=== PATIENT | female | born 1970 | race Caucasian/White ===

== ENCOUNTER 2021-06-20 09:49 | Outpatient (CLI) | payer BC, SELFPAY ==
--- NOTE | 2021-06-20 11:00 | NEURO_ITS ---
Impression: # Complains of numbness of hands. # Right moderate Carpal Tunnel Syndrome. # Left mild evolving Carpal Tunnel Syndrome. # No ulnar neuropathy. # Normal needle/EMG exam. Nerve Conduction Studies Anti Sensory Summary Table Stim Site NR Peak (ms) P-T Amp (?V) Site1 Site2 Delta-P (ms) Dist (cm) Robert (m/s) Left Median Anti Sensory (2-3nd Digit) Wrist 3.2 96.4 Wrist 2-3nd Digit 3.2 14.0 44 Wrist 3.2 85.9 Wrist 2-3nd Digit 3.2 14.0 44 Right Median Anti Sensory (2-3nd Digit) Wrist 5.4 23.2 Wrist 2-3nd Digit 5.4 14.0 26 Wrist 6.1 16.8 Wrist 2-3nd Digit 5.4 14.0 26 Left Radial Anti Sensory (Base 1st Digit) Wrist 1.8 37.3 Wrist Base 1st Digit 1.8 0.0 Right Radial Anti Sensory (Base 1st Digit) Wrist 2.1 37.2 Wrist Base 1st Digit 2.1 0.0 Left Ulnar Anti Sensory (5th Digit) Wrist 2.5 64.0 Wrist 5th Digit 2.5 14.0 56 Right Ulnar Anti Sensory (5th Digit) Wrist 2.3 35.5 Wrist 5th Digit 2.3 14.0 61 Motor Summary Table Stim Site NR Onset (ms) O-P Amp (mV) Site1 Site2 Delta-0 (ms) Dist (cm) Robert (m/s) Left Median Motor (Abd Poll Brev) Wrist 3.8 1.5 Elbow Wrist 5.0 26.0 52 Elbow 8.8 1.5 Right Median Motor (Abd Poll Brev) Wrist 5.0 0.1 Elbow Wrist 5.2 24.0 46 Elbow 10.2 0.5 Left Ulnar Motor (Abd Dig Minimi) Wrist 2.3 4.9 A Elbow Wrist 4.3 26.0 60 A Elbow 6.6 5.3 Right Ulnar Motor (Abd Dig Minimi) Wrist 2.3 7.7 A Elbow Wrist 4.4 26.0 59 A Elbow 6.7 6.3 F Wave Studies NR F-Lat (ms) L-R F-Lat (ms) Left Median (Mrkrs) (Abd Poll Brev) 27.49 1.52 Right Median (Mrkrs) (Abd Poll Brev) 29.01 1.52 Left Ulnar (Mrkrs) (Abd Dig Min) 26.88 1.60 Right Ulnar (Mrkrs) (Abd Dig Min) 25.28 1.60 EMG Side Muscle Nerve Root Ins Act Fibs Amp Dur Recrt Comment Right 1stDorInt Ulnar C8-T1 Nml Nml Nml Nml Nml Right Ext Indicis Radial (Post Int) C7-8 Nml Nml Nml Nml Nml Right Ext Digitorum Radial (Post Int) C7-8 Nml Nml Nml Nml Nml Right BrachioRad Radial C5-6 Nml Nml Nml Nml Nml Right PronatorTeres Median C6-7 Nml Nml Nml Nml Nml Right Abd Poll Brev Median C8-T1 Nml Nml Nml Nml Nml Left 1stDorInt Ulnar C8-T1 Nml Nml Nml Nml Nml Left Ext Indicis Radial (Post Int) C7-8 Nml Nml Nml Nml Nml Left Ext Digitorum Radial (Post Int) C7-8 Nml Nml Nml Nml Nml Left BrachioRad Radial C5-6 Nml Nml Nml Nml Nml Left PronatorTeres Median C6-7 Nml Nml Nml Nml Nml Left Abd Poll Brev Median C8-T1 Nml Nml Nml Nml Nml MTDD
== END 2021-06-20 09:50 | disposition home or self-care (01) ==
PROVIDERS: Visit Provider Internal Medicine
DX: M79.641 Pain in right hand (principal); G56.03 Carpal tunnel syndrome, bilateral upper limbs
CPT/HCPCS: 95886; 95911

== ENCOUNTER 2022-06-13 08:13 | Outpatient (CLI) | payer BC, SELFPAY ==
--- NOTE | 2022-06-13 08:20 | ECG_ITS ---
Measurements Intervals [place] Rate: 92 P: 13 MT: 143 QRS: 1 QRSD: 85 T: 6 QT: 342 QTc: 425 Interpretive Statements SINUS RHYTHM LOW QRS VOLTAGE POOR R-WAVE PROGRESSION NO PREVIOUS ECG AVAILABLE FOR COMPARISON Electronically Signed On 06-13-2022 17:15:11 [employer] by Kevin Maza M.D.
[2022-06-13 09:03] LABS: Anion Gap 3 mmol/L (8-16); Blood Urea Nitrogen 10 mg/dL (7-17); Calcium 8.7 mg/dL (8.4-10.2); Carbon Dioxide 32 mmol/L (22-30); Chloride 103 mmol/L (98-107); Estimated Glomerular Filt Rate > 60; Glucose 101 mg/dL (65-110); Sodium 138 mmol/L (137-145)
== END 2022-06-13 08:14 | disposition home or self-care (01) ==
PROVIDERS: Anesthesiology; PCP Physician Assistant Medical; Visit Provider Orthopaedic Surgery
DX: I10 Essential (primary) hypertension (principal); Z01.818 Encounter for other preprocedural examination
CPT/HCPCS: 36415; 80048; 93005

== ENCOUNTER 2022-06-17 00:46 | Day surgery (SDC) | payer BC, SELFPAY ==
--- NOTE | 2022-06-09 15:19 | PC.NURSE ---
Report to the Outpatient Waiting Room, entrance under the green pavilion located off [address], at time _0900 on date _06/17/22 . Planned Procedure Time: ___1100 . Time changes happen often and if your time is changed the preop area will call you the afternoon before. - You and your visitor will be asked to self-screen and do not enter if you have any COVID symptoms. - Only one visitor is requested with a max of two and NO children visitors are allowed at this time. - The patient visitor may be requested to leave or wait in car when not with patient due to distancing restrictions. - A mask is optional within the hospital. Patients may have clear liquids (water, carbonated beverages, clear teas, apple juice) until 3 hours prior to surgery with a maximum of 20 ounces. - No food from midnight until time of surgery - Infants may have breast milk until 4 hours before surgery, formula 6 hours prior to surgery. - Children will be allowed to drink immediately following surgery. If applicable, please bring a bottle or sippy cup to assist with drinking. Juice, water, soda, and popsicles are readily available. For infants on formula, please bring formula the day of surgery. Pacifiers are allowed. Take the following medications with a SIP of water the morning of surgery: __NONE Medications to discontinue per physician ___NAPROXEN PER DR ALLAN . ALL VIT/SUPP 3 DAYS PRE OP Date to take last dose 06/13/22 Please no make-up, nail thai, hairspray, perfume, deodorant, or body powder the day of surgery. No jewelry (including any body piercings) or valuables the day of surgery, leave them at home. Please take a shower or bath the night before, or the morning of, surgery with an antibacterial soap. Wear comfortable, loose fitting clothing. Children are encouraged to wear pajamas. - Jewelry must be removed prior to entering the operating room. Rings and piercings that are not removed may be cut off. - The hospital will not accept responsibility for valuables. - Please leave all valuables, including medications, at home the day of surgery. If you are going home after surgery, a licensed yard driver must drive you home. - NO public transportation without another adult if you receive anesthesia. - We recommend that an adult stay with you for 24 hours following discharge. - We also recommend that you do not drive, make important decision, drink alcoholic beverages, or take any drugs that were not prescribed by your health care provider for at least 24 hours after your discharge time. For Pediatric surgeries, we recommend two adults accompany the child home. Follow any additional instructions given to you from your surgeon. If you or anyone in your household have experienced Covid symptoms in the past week, please notify your surgeon or the nurse liaison at the phone number below for possible testing. Telephone instructions given to _PATIENT and asked if any additional questions and then verbalized understanding. Patient advised to call surgeon office or pre surgery nurse liaison [phone] if any additional questions.
[2022-06-09 15:29] VITALS: BMI 44.1
--- NOTE | 2022-06-16 14:00 | WPDANESEPPF ---
Anes - Initial Pre Proc Eval Procedure: Operation Date: 06/17/22 11:00 Proposed Procedures p Left Knee Arthroscopy - Adolfo Young MD Date/Time: 06/16/22 14:00 Surgeon: Adolfo Young MD Pre Op Diagnosis: Lt Knee Medial Meniscus Tear Patient Data Age: 51 Gender: F Height: 1.65 m Weight: 120.35 kg Allergies Allergy/AdvReac Type Severity Reaction Status Date / Time latex Allergy Severe Irritable Verified 06/09/22 15:09 meloxicam AdvReac Severe Headache Verified 06/09/22 15:11 Home Medications Medication Instructions Recorded Confirmed Type cholecalciferol (vitamin D3) 125 125 mcg PO DAILY 03/12/22 06/09/22 History mcg (5,000 unit) tablet cyanocobalamin (vitamin B-12) 2,500 mcg PO DAILY 03/12/22 06/09/22 History 2,500 mcg tablet losartan 50 mg tablet 50 mg PO DAILY #30 tabs 03/12/22 06/09/22 Rx naproxen sodium 220 mg capsule 220 mg PO BID PRN Pain 03/12/22 06/09/22 History (Aleve) ropinirole 0.25 mg tablet 0.25 mg PO .as needed 03/12/22 06/09/22 History tramadol 50 mg tablet 50 mg PO Q6H PRN pain #30 tabs 04/03/22 06/09/22 Rx furosemide 20 mg tablet 20 mg PO QAM #30 tabs 05/30/22 06/09/22 Rx chlorhexidine gluconate 4 % 1 applic topical ONCE #237 mL 06/09/22 Rx topical liquid (Hibiclens) cranberry 500 mg capsule 500 mg PO DAILY 06/09/22 06/09/22 History Patient hx anesthesia problems: none Family hx anesthesia problems: none Results Review: All pre-operative results and documents have been reviewed as part of the pre-operative evaluation. [facility] Past Medical History Medical History (Updated 06/16/22 @ 14:01 by Reji Gordon MD) Dyslipidemia HTN (hypertension) Knee pain, left Morbid obesity with BMI of 40.0-44.9, adult Obesity Osteoarthritis Vitamin B12 deficiency Vitamin D deficiency Social History Social History Smoking packs per day: 1 Smoking cigarettes per day: 20.0 Years smoked: 3 Smoking pack-years: 3.00 Smoking status: Former smoker Tobacco type: cigarettes Smoking end date: 07/06/91 Alcohol intake: current Drinks per week: 8 Alcohol use details: BEER Substance use: never Living arrangements: with family Gender identity (if verbalized by the patient): Female Spiritual care concerns: No Anes - Eval Final PreProcedure Day of Procedure 06/16/22 14:00 Patient weight: morbidly obese Heart: regular rate and rhythm Lungs: clear to auscultation and normal air movement Airway: Mallampati scale class II Neurological: alert and oriented Last oral intake: >/= 8 hours ASA classification: III Emergent: no Anesthetic plan: proceed Anesthesia type and monitoring: general LMA Results Review: All pre-operative results and documents have been reviewed as part of the pre-operative evaluation. Informed Consent: The patient's anesthetic plan and its attendant risks and benefits were discussed with the patient/family/POA. Questions were solicited and answers provided to the satisfaction of the patient/family/POA.
[2022-06-17] VITALS (11 sets, daily range): BP systolic 133–153; BP diastolic 71–99; PULSE 78–92; RESP 12–20; TEMP 36.4–36.6; O2SAT 93–100; BMI 43.9
--- NOTE | 2022-06-17 06:58 | WPDHPUPDATE1 ---
History and Physical Update Update Date/Time: 06/17/22 06:58 History and Physical has been reviewed, including an updated exam of the patient. There are NO changes in the patient's condition. Risks, benefits, and alternatives have been discussed and questions answered. Patient agrees to proceed with procedure.
[2022-06-17] MEDS: CELECOXIB 200 MG CAPSULE PO (09:53)
[2022-06-17] MEDS: ACETAMINOPHEN 500 MG TABLET 1000 MG PO (09:53)
[2022-06-17] MEDS: LACTATED RINGERS 1,000 ML 30 ML IV CONT ×2 (10:18→12:47)
[2022-06-17] MEDS: ceFAZolin 2 GM/D5W 50 ML 2 GM/50 ML BAG IVPB (11:22)
[2022-06-17] MEDS: methylPREDNISolone ACETATE 80 MG/ML VIAL IM (12:33)
[2022-06-17] MEDS: BUPIVACAINE HCL 0.5% PF 30 ML VIAL INFILTRATE (12:43)
[2022-06-17] MEDS: fentaNYL CITRATE INJ (*CRX) 100 MCG/2 ML VIAL 25 MCG IV PUSH ×8 (12:53→13:38)
--- NOTE | 2022-06-17 13:09 | W.PM.PROC2 ---
Procedure Note - Detailed Date of Procedure 06/17/22 Pre-op Diagnosis Lt Knee Medial Meniscus Tear Post-op Diagnosis Same Procedure Performed LEFT KNEE SCOPE Surgeon Adolfo Young MD Anesthesia General Description of Procedure PATIENT WAS TAKEN TO THE OR. LEFT LEG WAS PREPPED AND DRAPED STERILE. TROCARS WERE PLACED IN THE USUAL FASHION. CAMERA WAS INTRODUCED. THERE WAS SEVERE CHONDROMALACIA TO THE PATELLA FEMORAL JOINT. THERE WAS A LOT OF SYNOVITIS IN ALL COMPARTMENTS. THE MEDIAL COMPARTMENT SHOWED CHONDROMALACIA TO THE MEDIAL FEMORAL CONDYLE. A SHAVER WAS USED TO PREFORM A CHONDROPLASTY. THERE WAS A COMPLEX MEDIAL MENISCUS TEAR. THE TEAR WAS RESECTED WITH A BITER AND A SHAVER DOWN TO A SMOOTH BASE. THE ACL WAS INTACT. THE LATERAL MENISCUS WAS NOT TORN. THE LATERAL COMPARTMENT HAD MINIMAL CHONDROMALACIA. CHONDROPLASTY WAS PREFORMED. A SYNOVECTOMY WAS PREFORMED WELL. THE PATELLO FEMORAL JOINT UNDERWENT CHONDROPLASTY. THERE WAS GRADE 3 AND 4 CHONDROMALACIA IN PART OF THE TROCHLEA AND PART OF THE PATELLA. SYNOVECTOMY WAS PREFORMED IN THE SUPERIOR MEDIAL COMPARTMENT. THE WOUNDS WERE APPROXIMATED WITH 4.0 NYLON. STERILE DRESSING WAS APPLIED. PATIENT WAS EXTUBATED. Estimated Blood Loss -2.0 Complications No immediate complications Condition Stable Disposition PACU
[2022-06-17] MEDS: oxyCODONE HCL (*CRX) 5 MG TAB IR PO ×2 (14:14→14:53)
== END 2022-06-17 15:17 | disposition home or self-care (01) ==
PROVIDERS: PCP Physician Assistant Medical; Visit Provider Orthopaedic Surgery
PROC: (CPT 29870; principal; 2022-06-17 11:00)
DX: M23.332 Other meniscus derangements, other medial meniscus, left knee (principal); M22.42 Chondromalacia patellae, left knee; M65.862 Other synovitis and tenosynovitis, left lower leg; I10 Essential (primary) hypertension; E78.5 Hyperlipidemia, unspecified; E55.9 Vitamin D deficiency, unspecified; E53.8 Deficiency of other specified B group vitamins; E66.01 Morbid (severe) obesity due to excess calories; Z68.41 Body mass index [BMI] 40.0-44.9, adult; Z87.891 Personal history of nicotine dependence
CPT/HCPCS: 29881; A9270; J0690; J1030; J1040; J1100; J2250; J2405; J2704; J3010; J7120

== ENCOUNTER 2023-11-12 15:45 | Outpatient (RCR) | payer BC, SELFPAY ==
--- NOTE | 2023-08-18 16:21 | PTOPEVAL1 ---
Assessment and note entered by Pk Syed, PT Evaluation Information Assessment Status Evaluation Diagnosis Right Leg injury, Patellofemoral dysfunction Onset 08/12/23 Subjective Information Reports tat she is getting a lot of pain in the back of the knee and in the calf. [place] a pop walking down stairs and has increased pain since. Reports that she has RLS as well which causes her to lose sleep. Feels she is getting better motion every day. Today feels like a good days and feels she is making progress. Reported Pain Level Pain Score 0: Self Report Assessment PT Clinical Summary Patient presents with signs and symptoms consistent with patellar tracking deficits, hip weakness, and possible meniscus trauma on R LE. She is lacking greater ROM on L knee coupled with altered gait increasing weight bearing on R LE at this time. Will benefit from skilled therapy to address these deficits. Plan of Care Interventions Electrical Stimulation,Gait Training,Hot Pack/Cold Pack,Manual Therapy,Neuro Re-education, Therapeutic Activities,Therapeutic Exercise PT Services Indicated Yes Treatment Frequency and 1-2x/week for 10 visits Duration These treatments will address the objective and functional deficits as defined above. The patient will be advanced safely and appropriately in order for the patient to progress towards his/her prior level of function. Additional exercises will be introduced and as well as a comprehensive home exercise program upon discharge, if needed, ?to ensure carryover of functional gains achieved in the clinic. This treatment plan has been reviewed and agreement upon by the patient.
--- NOTE | 2023-08-18 16:22 | OPREHPOC ---
Outpatient Therapy Plan of Care This is a Multidisciplinary Plan of Care that may contain components documented by all disciplines (PT, OT, and ST.) PT Problem 1 PT Problem #1 Knowledge Deficit PT Goal 1 Goal Kings with HEP Target Visit 3 PT Problem 2 PT Problem #2 Pain PT Goal 1 Goal Report pain no greater than 2/10 with initiation of gait Target Visit 5 PT Problem 3 PT Problem #3 Impaired Range of Motion PT Goal 1 Goal Improve R knee gross ROM to 0-125 degrees to improve terminal stance of gat and equal load bearing Target Visit 10 PT Goal 2 Goal Improve stephanie ankle dorsiflexion to 10 degrees to improve terminal stance of gait and foot progression bilaterally Target Visit 10 PT Problem 4 PT Problem #4 Impaired Gait PT Goal 1 Goal Ambulate with even stride length bilaterally Target Visit 10
--- NOTE | 2023-09-25 16:53 | PTOPPROG ---
Assessment and note entered by Neda Shah, PT Assessment Status Progress Report Diagnosis Right Leg injury, Patellofemoral dysfunction Therapy conditions pain in right knee, pain in left knee Onset 08/12/23 Subjective Information Notes after walking out of therapy feels good, but then gets back to work on the concrete floor and goes south really fast Reports improvement in bending leg sideways and put shoes on. Still hard time with stairs. Bending is better than previously Today LEFT knee is bothersome. Reports both are better than they were but neither is perfect. Had increased discomfort after taking a spill 2 weeks ago. Assessment PT Clinical Summary Pt russo's improvement in her ambulation, and ROM bilat knees. Cont to have high levels of pain at times though reports this is less often. Cont to demo severe tenderness in left patella and moderate tenderness in bilat joint lines. Pt will benefit from continued therapy to continue improving pain and thus improving function. Plan of Care Interventions Electrical Stimulation,Gait Training,Hot Pack/Cold Pack,Manual Therapy,Neuro Re-education, Therapeutic Activities,Therapeutic Exercise, Ultrasound Other Interventions Phonophoresis PT Services Indicated Yes Treatment Frequency and 1-2x weekly x 12 visits Duration These treatments will address the objective and functional deficits as defined above. The patient will be advanced safely and appropriately in order for the patient to progress towards his/her prior level of function. Additional exercises will be introduced and as well as a comprehensive home exercise program upon discharge, if needed, ?to ensure carryover of functional gains achieved in the clinic. This treatment plan has been reviewed and agreement upon by the patient.
--- NOTE | 2023-11-19 10:12 | PCPTNOTE ---
This treatment is being continued on visit number [id number]. Please see documentation on both accounts to view progress. Completed interventions, outcomes, and problems have been marked as Inactive to facilitate the copying of the Care plan routine for recurring accounts.
== END 2023-11-16 23:59 | disposition home or self-care (01) ==
LOC: ANHHIPT 15:45
PROVIDERS: PCP Physician Assistant Medical; Visit Provider Family Medicine
DX: M22.2X1 Patellofemoral disorders, right knee (principal); S89.91XD Unspecified injury of right lower leg, subsequent encounter
CPT/HCPCS: 97014; 97035; 97110; 97140; 97161; 97750; G0283

== ENCOUNTER 2023-11-19 16:18 | Outpatient (RCR) | payer BC, SELFPAY ==
--- NOTE | 2023-11-19 10:13 | PCPTNOTE ---
The treatment documented on this account is a continuation of the treatment documented on visit number [id number]. Please see documentation on both accounts to view progress. The Plan of Care has been transitioned and updated within the new V#. I have addressed and agree with the discipline specific Problems, Interventions, and Goals for the current certification period. Completed interventions, outcomes, and problems have been marked as Inactive to facilitate the copying of the Care plan routine for recurring accounts.
--- NOTE | 2023-11-24 10:08 | PTOPDC ---
Assessment and note entered by Agata Tinajero, PT Discharge Information Assessment Status Discharge Diagnosis Right Leg injury, Patellofemoral dysfunction Onset 08/12/23 Subjective Information Notes after walking out of therapy feels good, but then gets back to work on the concrete floor and goes south really fast Reports improvement in bending leg sideways and put shoes on. Still hard time with stairs. Bending is better than previously Today LEFT knee is bothersome. Reports both are better than they were but neither is perfect. Had increased discomfort after taking a spill 2 weeks ago. Assessment PT Clinical Summary Pt has met most of her goals, noted good progress with ROM, strength and gait from SOC to now. However the pain and some swelling persist and continue to affect her ADLs and IADLs. Pt states she will see MD and is considering surgical options at this time. Plan of Care PT Services Indicated No
== END 2023-11-27 14:15 | disposition home or self-care (01) ==
LOC: ANHHIPT 16:18
PROVIDERS: PCP Physician Assistant Medical; Visit Provider Family Medicine
DX: M22.2X1 Patellofemoral disorders, right knee (principal); S89.91XD Unspecified injury of right lower leg, subsequent encounter
CPT/HCPCS: 97110; 97140; 97530

== ENCOUNTER 2025-01-12 12:30 | Outpatient (RCR) | payer BC, SELFPAY ==
--- NOTE | 2024-11-14 17:04 | PTOPEVAL1 ---
Assessment and note entered by Neda Shah, PT Evaluation Information Assessment Status Evaluation Diagnosis left knee total replacement ICD-10 Condition Codes (PT) Pain in left knee M25.562,Abnormalities of gait and mobility R26.9,Weakness R53.1 Onset 10/25/24 Subjective Information Getting better every day. Is always stiff in the morning, but after shower things loosen up. Tries to do her exercises at that point. Is trying to do her ice and elevate as well but reports feeling stiff after this. Reports yesterday was up and walking a lot because of her back. Pt reports didn't need her cane half the day today. Some difficulty with getting into the car. When the inpatient PT came in couldn't lift leg at all. Is firing better than it was. Had 6 visits with home health Still has norco, and muscle relaxer but is taking these less Reported Pain Level Pain Score 2: Self Report Assessment PT Clinical Summary Pt presents approx 2.5 weeks post operative L total knee joint replacement. She reports she is having to use pain medication less though still has instances of 10/10 pain and lowest rating at 2 /10 pain. Presents ambulating with single point cane functionally with moderate gait deficits. Demonstrates significantly reduced ROM actively and passively. Also demonstrates significant tenderness localized to the medial femoral condyle area, localized and minimal swelling to knee joint area with mild swelling in ankle and no pitting edema in lower leg. Severely decreased quads strength with testing though appears greatly reduced due to medial knee pain. Pt will greatly benefit from physical therapy in order to reduce pain, address ROM and strenght, address gait pattern, and assist patient in reaching highest functional independence with least amount of pain. Plan of Care Interventions Electrical Stimulation,Gait Training,Hot Pack/Cold Pack,Manual Therapy,Neuro Re-education,Patient/ Caregiver Education,Therapeutic Activities, Therapeutic Exercise,Self-Care/Home Management, Other Other Interventions Taping Treatment Frequency and 2-3x weekly x 20 visits Duration These treatments will address the objective and functional deficits as defined above. The patient will be advanced safely and appropriately in order for the patient to progress towards his/her prior level of function. Additional exercises will be introduced and as well as a comprehensive home exercise program upon discharge, if needed, ?to ensure carryover of functional gains achieved in the clinic. This treatment plan has been reviewed and agreement upon by the patient.
--- NOTE | 2024-11-14 17:04 | OPREHPOC ---
Outpatient Therapy Plan of Care This is a Multidisciplinary Plan of Care that may contain components documented by all disciplines (PT, OT, and ST.) PT Problem 1 PT Problem #1 Knowledge Deficit PT Goal 1 Goal / Goal Update Pt will be independent in HEP Pt will verbalize understanding of diagnosis and prognosis Target Visit 10 PT Problem 2 PT Problem #2 Pain PT Goal 1 Goal / Goal Update Pt will report lowest pain rating at 0/10 to show improvement in overall discomfort Target Visit 10 PT Goal 2 Goal / Goal Update Pt will report greatest pain level at 3/10 or less to improve ADLs and activities Target Visit 20 PT Problem 3 PT Problem #3 Impaired Range of Motion PT Goal 1 Goal / Goal Update Passive ROM left knee 5-100 for improved functional mobility Target Visit 10 PT Goal 2 Goal / Goal Update Active ROM 0-120 for functional mobility Target Visit 20 PT Problem 4 PT Problem #4 Impaired Strength PT Goal 1 Goal / Goal Update Pt will demonstrates left quads strength of 3-/5 Target Visit 10 PT Goal 2 Goal / Goal Update Pt will demonstrate 4/5 strength for functional use
--- NOTE | 2024-12-22 15:32 | PTOPPROG ---
Assessment and note entered by Neda Shah, PT Evaluation Information Assessment Status Progress Diagnosis left knee total replacement ICD-10 Condition Codes (PT) Pain in left knee M25.562,Abnormalities of gait and mobility R26.9,Weakness R53.1 Onset 10/25/24 Subjective Information Doesn't require pain medication any longer. Will take Aleve for shoulders but if she forgets notes there is no difference on knees. States is not great at steps without railing but is practicing this. Self-perceived improvement: 90% Swelling and range still to go Assessment PT Clinical Summary Pt demonstrates greatly improved ROM actively at 5 /113 (previously 40-75) and passively at 0-113 degrees (previously 10-85). Her quads strength is greatly improved as well with healthy isolated contractions, no extensor lag with straight leg raises, and shows 4-/5 with resisted testing. She is walking without AD, reports her pain is more of a tightness than a pain and rates at a 1/10 consistently, improved swelling observed as well. she has yet to be able to perform high level activities required for her position at place of employment, and has yet to master stairs in reciprocal pattern without railing (as reported by patient) Pt will benefit from continued therapy to continue improving her range, functional strength, and prepare for return to high level physical requirement at her place of employment. Plan of Care Interventions Electrical Stimulation,Gait Training,Hot Pack/Cold Pack,Manual Therapy,Neuro Re-education,Patient/ Caregiver Education,Therapeutic Activities, Therapeutic Exercise,Self-Care/Home Management, Other Other Interventions Taping PT Services Indicated Yes Treatment Frequency and Cont 1-2x weekly remainder of POC Duration These treatments will address the objective and functional deficits as defined above. The patient will be advanced safely and appropriately in order for the patient to progress towards his/her prior level of function. Additional exercises will be introduced and as well as a comprehensive home exercise program upon discharge, if needed, ?to ensure carryover of functional gains achieved in the clinic. This treatment plan has been reviewed and agreement upon by the patient.
--- NOTE | 2025-01-05 16:09 | PCPTNOTE ---
Patient called & cancelled scheduled appointment this date due to family emergency
--- NOTE | 2025-01-12 13:51 | PTOPDC ---
Assessment and note entered by Neda Shah, PT Evaluation Information Assessment Status Discharge Diagnosis left knee total replacement ICD-10 Condition Codes (PT) Pain in left knee M25.562,Abnormalities of gait and mobility R26.9,Weakness R53.1 Onset 10/25/24 Subjective Information Pt reports is able to do steps, still baby it on the way down steps. Up is no problem. Has had 5 half days at work and has been doing ok. Reports gets stiff but is because stands without bending knee. Will use the railing near her to bend te knee occasionally. Self-perceived improvement 95% Reported Pain Level Pain Score 1: Self Report Assessment PT Clinical Summary Pt has been attending therapy consistently post total knee replacement. Her range and strength have greatly improved compared to initial evaluation. Her pain has reduced to 2/10 at most, and she has returned to part-days at work with the planning to return to full days this coming week. She has been educated in the findings and updated HEP focused on the mild lack of strength and flexion remaining. Pt is happy with her findings, thus will be discharged for completion of plan of care. Plan of Care PT Services Indicated No
== END 2025-01-12 14:01 | disposition home or self-care (01) ==
LOC: ANHHIPT 12:30
PROVIDERS: PCP Physician Assistant Medical
DX: Z47.1 Aftercare following joint replacement surgery (principal); M25.562 Pain in left knee; R26.9 Unspecified abnormalities of gait and mobility; R53.1 Weakness; Z96.652 Presence of left artificial knee joint
CPT/HCPCS: 97014; 97016; 97110; 97112; 97140; 97161; 97530; 97750; G0283